=== PATIENT | male | born 1980 | race Caucasian/White ===

== ENCOUNTER 2017-05-05 09:09 | Day surgery (SDC) | payer OTHER ==
[2017-05-04 10:53] VITALS: BMI 28.3
[2017-05-05 09:31] LABS: BASO % 0.3 % (0-2.0); EOS % 1.2 % (0-4.5); HEMATOCRIT 43.9 % (35.4-49); HEMOGLOBIN 14.4 GM/dL (11.7-16.9); MCH 29.8 pg (25.7-33.7); MCHC 32.7 g/dl (32.0-35.9); MEAN PLT VOLUME 7.9 fl (7.5-11.1); MONO % 15.1 % (3.8-10.2); NEUT % 60.4 % (42.8-82.8); PLATELET COUNT 220 K/MM3 (134-434); RBC 4.82 M/mm3 (4.00-5.60); RDW 15.1 % (11.9-15.9)
[2017-05-05 10:05] LABS: INR 1.05 (0.82-1.09); PROTHROMBIN TIME (PATIENT) 11.9 SEC (9.98-11.88)
[2017-05-05 10:08] LABS: ACTIVATED PTT 29.1 SECONDS (26.9-34.4)
[2017-05-05 10:09] LABS: CHLORIDE 106 mmol/L (98-107); POTASSIUM 4.4 mmol/L (3.5-5.1); SODIUM 141 mmol/L (136-145)
[2017-05-05 10:17] LABS: ANION GAP 6 (8-16); BLOOD UREA NITROGEN 13 mg/dL (7-18); CALCIUM 8.8 mg/dL (8.5-10.1); CO2 29 mmol/L (21-32); CREATININE 0.8 mg/dL (0.7-1.3); GLUCOSE,RANDOM 95 mg/dL (74-106)
[2017-05-05] MEDS ORDERED: BUPIVACAINE HCL/PF 0.5% (5MG/ML) 10 ML VIAL ONE (10:57)
[2017-05-05] MEDS ORDERED: LIDOCAINE HCL 1%, 10 MG/ML (20ML VIAL) ONE (10:57)
[2017-05-05] MEDS ORDERED: MIDAZOLAM HCL 2 MG/2 ML SINGLE DOSE VIAL ONE (11:02)
[2017-05-05] MEDS ORDERED: GLYCOPYRROLATE 0.2 MG/1 ML VIAL ONE (11:02)
--- NOTE | 2017-05-05 11:05 | OP ---
Operative Note - Note: Operative Date: 05/05/17 Pre-Operative Diagnosis: Left Testicular mass Operation: Left radical orhiectomy Findings: Left testicular mass Post-Operative Diagnosis: Same as Pre-op Surgeon: Kunal Hazel MD. Anesthesia: General
[2017-05-05] MEDS ORDERED: PROPOFOL 20 ML ONE ×2 (11:10→11:59)
[2017-05-05] MEDS ORDERED: LIDOCAINE HCL 1%, 10 MG/ML (20ML VIAL) INF ONE ×2 (11:25)
[2017-05-05] MEDS ORDERED: DEXAMETHASONE SOD PHOSPHATE 4 MG/1 ML VIAL ONE (11:27)
[2017-05-05] MEDS ORDERED: ONDANSETRON 4 MG/2 ML VIAL IVPUSH PRN (11:53)
[2017-05-05] MEDS ORDERED: oxyCODONE HCL 5 MG TABLET PO PRN (11:53)
[2017-05-05] MEDS ORDERED: LACTATED RINGERS SOLUTION 1,000 ML IV SCH (12:00)
[2017-05-05] MEDS ORDERED: MEPERIDINE HCL CARPU-JECT 25 MG/1 ML DISP.SYRIN IVPUSH ONE (12:11)
[2017-05-05 13:16] VITALS: TEMP 99
[2017-05-05 13:50] VITALS: PULSE 86
[2017-05-05 14:17] VITALS: BP 123/79
--- NOTE | 2017-05-05 14:20 | OP ---
DATE OF OPERATION: 05/05/2017 PREOPERATIVE DIAGNOSIS: Left testicular mass. POSTOPERATIVE DIAGNOSIS: Left testicular mass. PROCEDURE: Left radical orchiectomy. HISTORY: This is a 36-year-old gentleman who first noted testicular growth approximately 2 months ago, who recalled some trauma to his scrotum which he felt may have been responsible for his sudden growth and size of the testicle. After the lesion appeared to continue to grow, the patient sought medical attention and presented several days ago to the office. Initial sonogram showed a questionable testicular mass on the left side. It was somewhat inconclusive. Therefore, an MRI was performed which was more suggestive of a renal mass. Markers, alpha fetoprotein and beta were both negative. The LDH was elevated. After discussing treatment options, patient elected to undergo the above-stated procedure. Risks and benefits of treatment, alternative treatment discussed in detail. All questions were answered. DESCRIPTION OF PROCEDURE: The patient was brought to the operating room, placed in supine position. Once general anesthesia was administered, the patient was then prepped and draped in standard sterile fashion. Intravenous antibiotics were given. At this time, 2% lidocaine was given subcutaneously at the proximal 3-cm inguinal incision. The skin was incised. The subcutaneous tissue was opened with electrocautery and blunt dissection. The cord was then isolated and clamped with a Nunu clamp and isolated with a Anmoore drain. At this time, the testicular mass was dissected free from surrounding tissue including the scrotal wall. Attachments were freed using electrocautery and ties when appropriate. At this time, attention was turned towards the proximal end of the cord. Cord was brought all the way up to just above the external ring. It was again clamped a second time, and two 0 Vicryls were used to tie the cord. Also, a 3-0 suture ligature was placed above the clamp. The ties were cut with long for potential possibility of needing to be identified in the future should a retroperitoneal dissection be warranted. At this time, the incision was irrigated, and the subcutaneous tissues were closed using interrupted 3-0 Vicryls. The incision was closed using a running Monocryl 3-0 in subcuticular fashion. Steri-Strips and a dry sterile occlusive dressing were applied. Patient was then brought to recovery room in stable and satisfactory condition. MELY BRITTON M.D. [id number]
--- NOTE | 2017-05-12 19:28 | PATH ---
Surgical Pathology Report Patient Name: GALINDO [facility]. Rec. #: [id number] /Age/Gender: 1980 (Age: 36) / M Account: [id number] Location: [facility] SURGICAL Taken: 05/05/2017 Received: 05/06/2017 Reported: 05/12/2017 Physicians: Kunal Hazel M.D. Specimen(s) Received LEFT TESTICLE AND SPERMATIC CORD Clinical History Testicular mass Final Diagnosis TESTICLE AND SPERMATIC CORD, LEFT, RADICAL ORCHIECTOMY: SEMINOMA, CLASSICAL TYPE. 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 TUMOR EXTENT: TUMOR INVOLVES RETE TESTIS, HILAR SOFT TISSUE, AND INVADES THROUGH THE TUNICA ALBUGINEA, BUT DOES NOT APPEAR TO PERFORATE MESOTHELIUM (TUNICA VAGINALIS). SURGICAL RESECTION MARGIN (SPERMATIC CORD RESECTION MARGIN): NEGATIVE FOR TUMOR. LYMPHOVASCULAR INVASION: PRESENT. INTRATUBULAR GERM CELL NEOPLASIA: FOCALLY PRESENT. AJCC PATHOLOGIC STAGING: PRIMARY TUMOR: pT2 LYMPH NODES: pNx SERUM MARKERS: S1 Comment: Histologic sections show classical seminoma. No other types of germ cell tumor are identified. Immunohistochemical stains performed at [place], [place] ([id number]) on block 3 and interpreted at [facility] show the following: The tumor cells are positive for D2-40 and OCT3/4, while negative for AE1/3, inhibin, glypican 3 and HCG immunostains. Scattered cells are positive for CD30, while CD117 (Ckit) have rare weak positivity. These results are supportive of classical seminoma. Serum marker for LDH was elevated, while hCG and AFP are within normal limits. Comments Testicular carcinoma: Surgical Pathology Cancer Summary Specimen Laterality _X_ Left Tumor Focality _X_ Unifocal Tumor Size Greatest dimension of main tumor mass (centimeters): 10 cm + Additional dimensions: 5.8 X 5.2 cm Histologic Type Intratubular Germ Cell Neoplasia _X__ Germ cell neoplasia in situ (GCNIS)-rare Seminoma _X_ Seminoma Tumor Extension _X_ Tumor invades rete testis _X_ Tumor invades hilar soft tissue _X_ Tumor invades tunica albuginea Margins Spermatic Cord Margin _X__ Uninvolved by tumor Lymphovascular Invasion _X_ Present Regional Lymph Nodes _X_ No lymph nodes submitted or found Pathologic Stage Classification (pTNM, AJCC 8th Edition) (Note F) Primary Tumor (pT) _X_ pT2: Tumor limited to testis (including rete testis invasion) with lymphovascular invasion OR Tumor invading hilar soft tissue or epididymis or penetrating visceral mesothelial layer covering the external surface of tunica albuginea with or without lymphovascular invasion Regional Lymph Nodes (pN) _X_ pNX: Regional lymph node cannot be assessed + Pre-Orchiectomy Serum Tumor Markers + _X_ Lactate dehydrogenase (LDH) elevation + Post-Orchiectomy Serum Tumor Markers + _X_ Unknown + Serum Tumor Markers (S) LDH HCG (mIU/mL) AFP (ng/mL) + _X__ S1: <1.5 X N# and <5,000 and <1,000 + Additional Pathologic Findings + _X_ Rare Germ cell neoplasia in situ (GCNIS) Electronically Signed Adina Garcia M.D. Gross Description Received in formalin labeled "left testicle and spermatic cord," is a 252 g orchiectomy specimen including a 10.0 x 6.0 x 5.5 cm testicle, a 5.5 x 2.0 x 2.0 cm epididymis and a 4.5 cm in length portion of attached spermatic cord. Sectioning reveals a 10.0 x 5.8 x 5.2 cm madrigal, homogeneous, lobulated mass involving the majority of the testicular parenchyma. The mass involves the epididymis. There is minimal remaining normal testicular parenchyma identified. No definite involvement of the spermatic cord is identified. The mass does not appear to grossly invade through the tunica albuginea. Also received within the same container is a 6.0 x 3.0 x 0.3 cm aggregate of yellow, lobulated adipose tissue. [employer] sections are submitted in 18 cassettes as follows: 1-spermatic cord margin of resection; 2-3-mass with normal testicular parenchyma; 4-9-mass with tunica albuginea and tunica vaginalis; 10-mass with epididymis; 11-12-mass with rete testis; 13-mass with hilar soft tissue; 14-proximal spermatic cord; 15-distal spermatic cord; 38-22-brpjixjyfv received fat. 05/06/201705/06/2017
== END 2017-05-05 14:19 | disposition home or self-care (01) ==
LOC: JASU-SURG 09:09
PROVIDERS: ATTEND Urology
PROC: 0VTB0ZZ Resection of Left Testis, Open Approach (ICD-10-PCS; principal; 2017-05-05 11:00)
DX: D40.12 Neoplasm of uncertain behavior of left testis (principal)
CPT/HCPCS: 36415; 80048; 85025; 85610; 85730; 88309-TC